=== PATIENT | female | born 1965 | race Caucasian/White ===

== ENCOUNTER 2017-06-26 07:08 | Emergency (ER) | payer BC ==
[2017-06-26 07:20] VITALS: BP 155/78
--- NOTE | 2017-06-26 07:47 | UC ---
Erick Bhatt Jason, scribed for Nona Laughlin MD on 06/26/17 at 0731 . Respiratory Complaint HPI - HPI Summary HPI Summary: This patient is a 51 year old F presenting to [facility] with a chief complaint of general congestion since 10 days ago. The patient reports that her congestion began 10 days ago and has since progressed to the chest, describing the mucous as thick and nasty and contributing to her inability to sleep at night. She states when I lay down I can hear a slight wheeze and feel really heavy. Additionally, the patient includes that she has been taking Mucinex without improvement, and has experienced similar symptoms with a history of bronchitis. The patient rates the pain 0/10 in severity. Symptoms aggravated by nothing. Symptoms alleviated by nothing. Patient reports productive cough, sore throat, headache, nausea, loss of appetite, and sinus soreness. Patient denies fever, SOB. Furthermore, the patient states that she stopped taking Invokana and Trulicity, but is taking Metformin for DM and Lisinopril for HTN. Diabetes is not presently under control--a1c is about 9% - History of Current Complaint Chief Complaint: UCRespiratory Stated Complaint: CONGESTION Time Seen by Provider: 06/26/17 07:17 Hx Obtained From: Patient Hx Last Menstrual Period: none Onset/Duration: Gradual Onset, Lasting Days - since 10 days ago, Still Present Pain Intensity: 0 Pain Scale Used: 0-10 Numeric Character: Cough: Productive Aggravating Factors: Nothing Alleviating Factors: Nothing Associated Signs And Symptoms: Positive: Negative - SOB, Wheezing, Nasal Congestion, Sinus Discomfort. Negative: Fever - Allergies/Home Medications Allergies/Adverse Reactions: Allergies Allergy/AdvReac Type Severity Reaction Status Date / Time Statins AdvReac Severe MUSCLE PAIN Verified 03/04/16 21:43 cats,dust Allergy Itching Uncoded 03/04/16 21:43 Home Medications: Home Medications Levothyroxine TAB* [Synthroid 25 MCG TAB*] 06/26/17 [History] PMH/Surg Hx/FS Hx/Imm Hx Endocrine History: Diabetes Cardiovascular History: Hypertension - Surgical History Surgical History: Yes Surgery Procedure, Year, and Place: X3, CHOLECYSTECTOMY, hysterrectomy and bladder susp; ERCP - Family History Known Family History: Positive: Diabetes Negative: Blood Disorder - Social History Alcohol Use: None Substance Use Type: None Smoking Status (MU): Never Smoked Tobacco Have You Smoked in the Last Year: No - Immunization History Most Recent Influenza Vaccination: declined Most Recent Tetanus Shot: up to date Most Recent Pneumonia Vaccination: none Review of Systems Constitutional: Negative - fever Skin: Negative Eyes: Negative ENT: Sore Throat, Sinus Congestion, Other - Sinus Soreness Respiratory: Negative - SOB, Cough - productive, Other - wheezing Cardiovascular: Negative Gastrointestinal: Nausea, Other - Loss of appetite Genitourinary: Negative Motor: Negative Neurovascular: Negative Musculoskeletal: Negative Neurological: Headache Psychological: Negative All Other Systems Reviewed And Are Negative: Yes Physical Exam Triage Information Reviewed: Yes Appearance: Ill-Appearing - looks mildly unwell, Obese Vital Signs: Initial Vital Signs Temp 98.7 F 06/26/17 07:14 Pulse 75 06/26/17 07:14 Resp 16 06/26/17 07:14 BP 155/78 06/26/17 07:14 Pulse Ox 98 06/26/17 07:14 Eyes: Positive: Conjunctiva Inflamed - mild injection ENT: Positive: Pharyngeal erythema, Other - TM's obscured by wax. Percussive sinus tenderness. Dental Exam: Normal Neck: Positive: Supple, Nontender, No Lymphadenopathy Respiratory: Positive: Lungs clear, Normal breath sounds Cardiovascular: Positive: RRR, No Murmur Musculoskeletal Exam: Normal Neurological Exam: Normal Neurological: Positive: Alert Psychological Exam: Normal Skin Exam: Normal UC Diagnostic Evaluation - Laboratory O2 Sat by Pulse Oximetry: 98 Respiratory Course/Dx - Course Course Of Treatment: This patient is a 51 year old F presenting to [facility] with a chief complaint of general congestion since 10 days ago. High blood pressure noted. Takes lisinopril and has follow up with PMD in 2 days. Augmentin for sinusitis. - Differential Dx/Diagnosis Differential Diagnosis/HQI/PQRI: Bronchitis, Lower Resp Infection, Sinusitis Provider Diagnoses: bilateral frontal sinusitis. Discharge - Discharge Plan Condition: Stable Disposition: HOME Prescriptions: Amoxicillin/Clavulanate TAB* [Augmentin TAB 875*] 875 mg PO BID #20 tab Fluconazole [Diflucan 150 MG (NF)] 150 mg PO ONCE #1 tab Patient Education Materials: Sinusitis (ED) Referrals: Alfa Fan MD [Primary Care Provider] - Additional Instructions: You have been prescribed augmentin for treatment of sinus infection. You have a prescription for fluconazole to treat a yeast infections should one develop. Follow up with Bertha Prado as arranged on Tuesday. Ensure high intake of fluids and increased rest. The documentation as recorded by the Erick menezes Jason accurately reflects the service I personally performed and the decisions made by me, Nona Laughlin MD.
== END 2017-06-26 07:45 | disposition home or self-care (01) ==
LOC: UCEAST 07:08
DX: J32.1 Chronic frontal sinusitis (principal); E11.65 Type 2 diabetes mellitus with hyperglycemia; Z79.84 Long term (current) use of oral hypoglycemic drugs; I10 Essential (primary) hypertension
CPT/HCPCS: 99212; G0463

== ENCOUNTER 2017-07-11 14:08 | Emergency (ER) | payer BC ==
[2017-07-11 14:22] VITALS: BP 159/91
--- NOTE | 2017-07-11 16:04 | UC ---
Marilee Bhatt Gabriel, scribed for Bandar Bhakta MD on 07/11/17 at 1457 . Respiratory Complaint HPI - HPI Summary HPI Summary: This patient is a 51 year old MF presenting to [facility] with a chief complaint of cough since 17 days ago. The patient rates the pain 2/10 in severity. Patient reports sinus congestion, ALVAREZ, constant nasal draining, and yeast infection. Patient denies CP and SOB. Patient was seen a week ago for similar symptoms and says what she was prescribed didnt work. - History of Current Complaint Chief Complaint: UCRespiratory Stated Complaint: SINUS PRESSURE, COUGH Time Seen by Provider: 07/11/17 14:54 Hx Obtained From: Patient Hx Last Menstrual Period: none Onset/Duration: Lasting Days - 17, Still Present Timing: Constant Severity Initially: Mild Severity Currently: Mild Pain Intensity: 2 Pain Scale Used: 0-10 Numeric Character: Cough: Nonproductive Associated Signs And Symptoms: Positive: Negative - CP and SOB, Nasal Congestion - Allergies/Home Medications Allergies/Adverse Reactions: Allergies Allergy/AdvReac Type Severity Reaction Status Date / Time Statins AdvReac Severe MUSCLE PAIN Verified 07/11/17 14:23 cats,dust Allergy Itching Uncoded 07/11/17 14:23 Home Medications: Home Medications Sitagliptin Phosphate [Januvia] 1 tab PO DAILY 07/11/17 [History Confirmed 07/11] PMH/Surg Hx/FS Hx/Imm Hx Previously Healthy: No Endocrine History: Diabetes, Hypothyroidism Cardiovascular History: Hypertension - Surgical History Surgical History: Yes Surgery Procedure, Year, and Place: X3, CHOLECYSTECTOMY, hysterrectomy and bladder susp; ERCP - Family History Known Family History: Positive: Diabetes Negative: Blood Disorder - Social History Alcohol Use: None Substance Use Type: None Smoking Status (MU): Never Smoked Tobacco Have You Smoked in the Last Year: No - Immunization History Most Recent Influenza Vaccination: declined Most Recent Tetanus Shot: up to date Most Recent Pneumonia Vaccination: none Review of Systems ENT: Nasal Discharge, Sinus Congestion Respiratory: Negative - SOB Cardiovascular: Negative - CP Genitourinary: Other - yeast infection Neurological: Headache All Other Systems Reviewed And Are Negative: Yes Physical Exam Triage Information Reviewed: Yes Appearance: Well-Appearing, No Pain Distress Vital Signs: Initial Vital Signs Temp 98.8 F 07/11/17 14:19 Pulse 78 07/11/17 14:19 Resp 18 07/11/17 14:19 BP 159/91 07/11/17 14:19 Pulse Ox 100 07/11/17 14:19 Vital Signs Reviewed: Yes Eye Exam: Normal ENT: Positive: TMs normal, Other - Posterior oropharynx erythema, rhinorrhea Neck exam: Other - Cervical lymphadenopathy Neck: Positive: Supple, Nontender Respiratory Exam: Normal - CTA Respiratory: Positive: Normal breath sounds Cardiovascular Exam: Normal Cardiovascular: Positive: RRR, No Murmur Abdominal Exam: Normal Abdomen Description: Positive: Nontender, Soft Bowel Sounds: Positive: Present Musculoskeletal Exam: Normal Musculoskeletal: Positive: Strength Intact, ROM Intact Neurological Exam: Normal - sensory/motor intact, A&O x3 Psychological Exam: Normal - affect/mood appropriate Skin Exam: Normal - warm, color reflects adequate perfusion, dry UC Diagnostic Evaluation - Laboratory O2 Sat by Pulse Oximetry: 100 Respiratory Course/Dx - Differential Dx/Diagnosis Provider Diagnoses: SINUSITIS Discharge - Discharge Plan Condition: Stable Disposition: HOME Prescriptions: Azithromyxin DEV (NF) [Z-Dev (Zithromax) 250 mg tabs #6] 2 tab PO .TODAY, THEN 1 DAILY #6 tab Fluconazole [Diflucan 150 MG (NF)] 150 mg PO ONCE #1 tab Patient Education Materials: Sinusitis (ED) Referrals: Alfa Fan MD [Primary Care Provider] - Additional Instructions: FOLLOW UP WITH YOUR DOCTOR. GET RECHECKED FOR ANY WORSENING OF YOUR CONDITION OR QUESTIONS OR CONCERNS. The documentation as recorded by the Marliee menezes Gabriel accurately reflects the service I personally performed and the decisions made by me, Bandar Bhakta MD.
== END 2017-07-11 15:09 | disposition home or self-care (01) ==
LOC: UCEAST 14:08
DX: J32.9 Chronic sinusitis, unspecified (principal); E11.9 Type 2 diabetes mellitus without complications; E03.9 Hypothyroidism, unspecified; I10 Essential (primary) hypertension
CPT/HCPCS: 99212; G0463

== ENCOUNTER 2017-09-09 18:04 | Emergency (ER) | payer BC ==
[2017-09-09 19:49] VITALS: BP 165/79
--- NOTE | 2017-09-09 19:58 | UC ---
Respiratory Complaint HPI - HPI Summary HPI Summary: Pt c/o of nasal congestion, sinus pressure, pain X 1 week that has worsened and is now productive cough,wheezing and increased malaise X 3 days. , - History of Current Complaint Chief Complaint: UCGeneralIllness Stated Complaint: RESPIRATORY Time Seen by Provider: 09/09/17 19:53 Hx Obtained From: Patient Hx Last Menstrual Period: none ?: No Onset/Duration: Gradual Onset Timing: Constant Severity Initially: Mild Severity Currently: Moderate Pain Intensity: 7 Character: Cough: Productive Aggravating Factors: Deep Breaths, Recumbent Position Alleviating Factors: Nothing Associated Signs And Symptoms: Positive: Fever, Chills, Wheezing, URI, Nasal Congestion - Risk Factors Pulmonary Embolism Risk Factors: Negative Cardiac Risk Factors: Negative Pseudomonas Risk Factors: Chronic Lung Disease - [place]ham Tuberculosis Risk Factors: Negative - Allergies/Home Medications Allergies/Adverse Reactions: Allergies Allergy/AdvReac Type Severity Reaction Status Date / Time MS Statins [Statins] AdvReac Severe MUSCLE PAIN Verified 09/09/17 19:49 cats,dust Allergy Itching Uncoded 09/09/17 19:49 PMH/Surg Hx/FS Hx/Imm Hx Previously Healthy: Yes Respiratory History: Asthma - Surgical History Surgical History: Yes Surgery Procedure, Year, and Place: X3, CHOLECYSTECTOMY, hysterrectomy and bladder susp; ERCP - Family History Known Family History: Positive: Diabetes Negative: Blood Disorder - Social History Occupation: Employed Full-time Lives: With Family Alcohol Use: None Substance Use Type: None Smoking Status (MU): Never Smoked Tobacco Have You Smoked in the Last Year: No - Immunization History Most Recent Influenza Vaccination: declined Most Recent Tetanus Shot: up to date Most Recent Pneumonia Vaccination: none Review of Systems Constitutional: Fever, Chills, Fatigue Skin: Negative Eyes: Negative ENT: Sinus Congestion, Sinus Pain/Tenderness Respiratory: Shortness Of Breath, Cough, Other - wheezing Cardiovascular: Negative Gastrointestinal: Negative Genitourinary: Negative Motor: Negative Neurovascular: Negative Musculoskeletal: Myalgia Neurological: Headache Psychological: Negative Is Patient Immunocompromised?: No All Other Systems Reviewed And Are Negative: Yes Physical Exam Triage Information Reviewed: Yes Appearance: Ill-Appearing Vital Signs: Initial Vital Signs Temp 98.2 F 09/09/17 19:44 Pulse 89 09/09/17 19:44 Resp 16 09/09/17 19:44 BP 165/79 09/09/17 19:44 Pulse Ox 99 09/09/17 19:44 Vital Signs Reviewed: Yes Eye Exam: Normal ENT Exam: Other ENT: Positive: Nasal congestion, TM bulging, Sinus tenderness Dental Exam: Normal Neck exam: Normal Respiratory Exam: Other Respiratory: Positive: Wheezing Cardiovascular Exam: Normal Musculoskeletal Exam: Normal Neurological Exam: Normal Psychological Exam: Normal Skin Exam: Normal UC Diagnostic Evaluation - Laboratory O2 Sat by Pulse Oximetry: 99 Respiratory Course/Dx - Differential Dx/Diagnosis Differential Diagnosis/HQI/PQRI: Bronchitis, Influenza, Sinusitis Provider Diagnoses: Bronchitis. sinusitis Discharge - Discharge Plan Condition: Stable Disposition: HOME Prescriptions: Albuterol HFA INHALER* [Ventolin HFA Inhaler*] 1 - 2 puff INH Q4H PRN #1 mdi PRN Reason: Sob/Wheezing Azithromycin TAB* [Zithromax TAB (Z-HAIDER) 250 mg #6 tabs] 2 tab PO .TODAY, THEN 1 DAILY #1 haider Benzonatate CAP* [Tessalon 100 MG CAP*] 100 mg PO Q8H PRN #21 cap PRN Reason: Cough Patient Education Materials: Acute Bronchitis (ED) Referrals: Alfa Fan MD [Primary Care Provider] - If Needed
== END 2017-09-09 20:06 | disposition home or self-care (01) ==
LOC: UCCORT 18:04
DX: J45.909 Unspecified asthma, uncomplicated (principal); J32.9 Chronic sinusitis, unspecified; Z90.49 Acquired absence of other specified parts of digestive tract; Z90.710 Acquired absence of both cervix and uterus
CPT/HCPCS: 99212; G0463

== ENCOUNTER 2018-07-29 20:18 | Emergency (ER) | payer BC ==
[2018-07-29 20:29] VITALS: BP 160/102
--- NOTE | 2018-07-29 20:32 | UC ---
Throat Pain/Nasal Jonnathan HPI - HPI Summary HPI Summary: 52 yo female presents with sinus pain/pressure/congestion for the last 2 weeks with post nasal drip. She has not been taking anything OTC. Denies fever, chills , sore throat, cough, n/v. - History of Current Complaint Chief Complaint: UCRespiratory Stated Complaint: SINUS PROBLEM Time Seen by Provider: 07/29/18 20:31 Hx Obtained From: Patient Hx Last Menstrual Period: none Onset/Duration: Gradual Onset Severity: Moderate Pain Intensity: 5 Pain Scale Used: 0-10 Numeric - Allergies/Home Medications Allergies/Adverse Reactions: Allergies Allergy/AdvReac Type Severity Reaction Status Date / Time [id number]-Gko-Lly Reductase Allergy Muscle Ache Verified 07/29/18 20:29 Inhibitor MS Statins [Statins] AdvReac Severe MUSCLE PAIN Verified 09/09/17 19:49 cats,dust Allergy Itching Uncoded 09/09/17 19:49 Home Medications: Home Medications Insulin Glargine/Lixisenatide [Soliqua 100 Unit-33 Mcg/ml Pen] 1 dose IM DAILY 07/29/18 [History Confirmed 07/29/18] PMH/Surg Hx/FS Hx/Imm Hx Endocrine History: Diabetes Cardiovascular History: Hypertension Respiratory History: Asthma - Surgical History Surgical History: Yes Surgery Procedure, Year, and Place: X3, CHOLECYSTECTOMY, hysterrectomy and bladder susp; ERCP - Family History Known Family History: Positive: Diabetes Negative: Blood Disorder - Social History Occupation: Employed Full-time Lives: With Family Alcohol Use: Occasionally Substance Use Type: None Smoking Status (MU): Never Smoked Tobacco Have You Smoked in the Last Year: No - Immunization History Most Recent Influenza Vaccination: declined Most Recent Tetanus Shot: up to date Most Recent Pneumonia Vaccination: none Review of Systems All Other Systems Reviewed And Are Negative: Yes Constitutional: Positive: Negative Skin: Positive: Negative Eyes: Positive: Negative ENT: Positive: Nasal Discharge, Sinus Congestion, Sinus Pain/Tenderness Respiratory: Positive: Negative Cardiovascular: Positive: Negative Gastrointestinal: Positive: Negative Neurovascular: Positive: Negative Neurological: Positive: Negative Psychological: Positive: Negative Physical Exam - Summary Physical Exam Summary: GENERAL: NAD. WDWN. No pain distress. SKIN: No rashes, sores, lesions, or open wounds. HEENT: Head: AT/NC Eyes: EOM intact. Conjunctiva clear without inflammation or discharge. Ears: Hearing grossly normal. TMs intact, no bulging, erythema, or edema. Nose: Nasal mucosa mildly swollen and erythematous with yellow/ clear discharge. TTP maxillary and frontal sinus. Positive post nasal drip Throat: Posterior oropharynx without exudates, erythema, or tonsillar enlargement. Uvula midline. NECK: Supple. Nontender. No lymphadenopathy. CHEST: CTAB. No r/r/w. No accessory muscle use. Breathing comfortably and in no distress. CV: RRR. Without m/r/g. Pulses intact. NEURO: Alert. PSYCH: Age appropriate behavior. Triage Information Reviewed: Yes Vital Signs: Initial Vital Signs Temp 97.4 F 07/29/18 20:26 Pulse 87 07/29/18 20:26 Resp 16 07/29/18 20:26 BP 160/102 07/29/18 20:26 Pulse Ox 98 07/29/18 20:26 Vital Signs Reviewed: Yes Throat Pain/Nasal Course/Dx - Course Course Of Treatment: Sinusitis. Repeat BP 152/92. Pt currently being treated for HTN and PCP aware. - Differential Dx/Diagnosis Provider Diagnosis: Sinusitis Discharge - Sign-Out/Discharge Documenting (check all that apply): Patient Departure All imaging exams completed and their final reports reviewed: No Studies - Discharge Plan Condition: Stable Disposition: HOME Prescriptions: Amoxicillin PO (*) [Amoxicillin 875 MG (*)] 875 mg PO BID #20 tab Fluconazole 150 MG TAB* [Diflucan 150 MG TAB*] 150 mg PO DAILY #1 tablet Patient Education Materials: Sinusitis (ED) Referrals: Alfa Fan MD [Primary Care Provider] - Additional Instructions: If you develop a fever, shortness of breath, chest pain, new or worsening symptoms - please call your PCP or go to the ED. Your blood pressure was high at todays visit. Please see your primary provider within 4 weeks for recheck and re-evaluation. - Billing Disposition and Condition Condition: STABLE Disposition: Home - Attestation Statements Provider Attestation: I was available for consult. This patient was seen by the LYSSA. The patient was not presented to , seen by or examined by -Jenna Rincon MD
[2018-07-29] MEDS ORDERED: Amoxicillin PO (*) 500 MG CAP PO ONE (20:36)
== END 2018-07-29 20:45 | disposition home or self-care (01) ==
LOC: UCEAST 20:18
DX: J32.9 Chronic sinusitis, unspecified (principal); E11.9 Type 2 diabetes mellitus without complications; I10 Essential (primary) hypertension; J45.909 Unspecified asthma, uncomplicated; Z88.8 Allergy status to other drugs, medicaments and biological substances; Z91.048 Other nonmedicinal substance allergy status; Z79.4 Long term (current) use of insulin
CPT/HCPCS: 99212; A9270-GY; G0463

== ENCOUNTER 2018-12-12 19:49 | Emergency (ER) | payer BC ==
[2018-12-12 20:18] VITALS: BP 176/90
--- NOTE | 2018-12-12 20:35 | UC ---
Lower Extremity/Ankle HPI - HPI Summary HPI Summary: P tc/o right 4th and 5th toe pain,swelling and redness after "stubbing" toes two days ago. Pt is a diabetic and is concerned that swelling, redness and tenderness is worsening. - History of Current Complaint Chief Complaint: UCLowerExtremity Stated Complaint: TOE INJURY - RIGHT FOOT Time Seen by Provider: 12/12/18 20:25 Hx Obtained From: Patient Hx Last Menstrual Period: none ?: No Onset/Duration: Sudden Onset, Lasting Days, Worse Since - onset Severity Initially: Mild Severity Currently: Moderate Pain Intensity: 8 Aggravating Factor(s): Standing, Ambulation Alleviating Factor(s): Rest, Elevation Able to Bear Weight: Yes - painful - Risk Factors Gout Risk Factors: Age Over 40, Diabetes DVT Risk Factors: Negative Septic Arthritis Risk Factor: Negative - Allergies/Home Medications Allergies/Adverse Reactions: Allergies Allergy/AdvReac Type Severity Reaction Status Date / Time Tvmvfhs-Aeb-Kul Reductase Allergy Muscle Ache Verified 07/29/18 20:29 Inhibitor MS Statins [Statins] AdvReac Severe MUSCLE PAIN Verified 09/09/17 19:49 cats,dust Allergy Itching Uncoded 09/09/17 19:49 Home Medications: Home Medications Cetirizine HCl [Zyrtec] 10 mg PO DAILY 12/12/18 [History Confirmed 12/12/18] Estradiol [Estrace] 0.5 mg PO DAILY 12/12/18 [History Confirmed 12/12/18] Fluticasone-Salmeterol 250-50* [Advair Diskus 250-50*] 1 puff INH BID 12/12/18 [ History Confirmed 12/12/18] Pravastatin Sodium 40 mg PO DAILY 12/12/18 [History Confirmed 12/12/18] Trazodone HCl 50 mg PO DAILY 12/12/18 [History Confirmed 12/12/18] PMH/Surg Hx/FS Hx/Imm Hx Previously Healthy: Yes Endocrine History: Diabetes - Surgical History Surgical History: Yes Surgery Procedure, Year, and Place: X3, CHOLECYSTECTOMY, hysterrectomy and bladder susp; ERCP - Family History Known Family History: Positive: Diabetes Negative: Blood Disorder - Social History Occupation: Employed Full-time Lives: With Family Alcohol Use: Occasionally Substance Use Type: None Smoking Status (MU): Never Smoked Tobacco Have You Smoked in the Last Year: No - Immunization History Most Recent Influenza Vaccination: declined Most Recent Tetanus Shot: up to date Most Recent Pneumonia Vaccination: none Vaccination Up to Date: Yes Review of Systems All Other Systems Reviewed And Are Negative: Yes Constitutional: Positive: Negative Skin: Positive: Bruising - right 4h and 5th toes Eyes: Positive: Negative ENT: Positive: Negative Respiratory: Positive: Negative Cardiovascular: Positive: Negative Gastrointestinal: Positive: Negative Genitourinary: Positive: Negative Motor: Positive: Decreased ROM - right 4th and 5th toes and c/o pain right lateral foot Neurovascular: Positive: Negative Musculoskeletal: Positive: Arthralgia - right foot, Decreased ROM - right lateral foot and 4th and 5th toes, Edema - right 4th and 5th toes, Myalgia - right foot Neurological: Positive: Negative Psychological: Positive: Negative Is Patient Immunocompromised?: No Physical Exam Triage Information Reviewed: Yes Appearance: Well-Appearing Vital Signs: Initial Vital Signs Temp 98.3 F 12/12/18 20:10 Pulse 85 12/12/18 20:10 Resp 16 12/12/18 20:10 BP 176/90 12/12/18 20:10 Pulse Ox 100 12/12/18 20:10 Vital Signs Reviewed: Yes Eye Exam: Normal ENT Exam: Normal Dental Exam: Normal Neck exam: Normal Respiratory: Positive: No respiratory distress Musculoskeletal: Positive: Strength Limited @ - right 4th and 5th toes, ROM Limited @ - right 4tha nd 5th toes, Edema @ - right 4th and 5th toes and distal lateral aspect of foot. Neurological Exam: Other - has DM, has neurapathy Psychological Exam: Normal Skin Exam: Normal - bruising right 4th and 5th toes Diagnostics - Radiology No standard instances Radiology Interpretation Completed By: ED Physician - negative for fracture Lower Extremity Course/Dx - Differential Dx/Diagnosis Differential Diagnosis/HQI/PQRI: Contusion, Fracture (Closed) Provider Diagnosis: Right foot injury, Contusion of fifth toe, right, Contusion of fourth toe, right Discharge - Sign-Out/Discharge Documenting (check all that apply): Patient Departure All imaging exams completed and their final reports reviewed: No - Discharge Plan Condition: Stable Disposition: HOME Patient Education Materials: Foot Contusion (ED) Referrals: Alfa Fan MD [Primary Care Provider] - If Needed Additional Instructions: Please follow up with your PCP or orthopedic provider if your symptoms do not improve or they worsen. - Billing Disposition and Condition Condition: STABLE Disposition: Home
--- NOTE | 2018-12-13 15:11 | UC ---
- Progress Note Progress Note: Radiologist reading of the right foot x-ray from December 12, 2018 is no acute process. The provider interpretation from the same date is also no fracture therefore there is no discrepancy. Course/Dx - Diagnoses Provider Diagnoses: Right foot injury, Contusion of fifth toe, right, Contusion of fourth toe, right Discharge - Sign-Out/Discharge Documenting (check all that apply): Patient Departure All imaging exams completed and their final reports reviewed: Yes - Discharge Plan Condition: Stable Disposition: HOME Patient Education Materials: Foot Contusion (ED) Referrals: Alfa Fan MD [Primary Care Provider] - If Needed Additional Instructions: Please follow up with your PCP or orthopedic provider if your symptoms do not improve or they worsen. - Billing Disposition and Condition Condition: STABLE Disposition: Home
== END 2018-12-12 20:53 | disposition home or self-care (01) ==
LOC: UCCORT 19:49
DX: S90.121A Contusion of right lesser toe(s) without damage to nail, initial encounter (principal); W22.8XXA Striking against or struck by other objects, initial encounter; Y93.01 Activity, walking, marching and hiking; Y92.019 Unspecified place in single-family (private) house as the place of occurrence of the external cause; J30.81 Allergic rhinitis due to animal (cat) (dog) hair and dander; J30.89 Other allergic rhinitis; E11.9 Type 2 diabetes mellitus without complications; Z88.8 Allergy status to other drugs, medicaments and biological substances
CPT/HCPCS: 99211; G0463